=== PATIENT | male | born 1955 | race Caucasian/White ===

== ENCOUNTER 2024-01-16 06:38 | Day surgery (SDC) | payer MEDICARE, BC, SELFPAY ==
[2024-01-16 13:33] VITALS: BMI 32.6
[2024-01-16 13:34] VITALS: BMI 32.6
[2024-01-16 13:37] VITALS: BP 136/75
[2024-01-16 15:43] VITALS: BP 134/80
[2024-01-16 15:50] VITALS: BP 137/83
[2024-01-16 16:00] VITALS: BP 131/82
== END 2024-01-16 16:15 | disposition home or self-care (01) ==
LOC: SDS 06:38
PROVIDERS: ATTENDING PHYSICIAN Surgery
DX: Z12.11 Encounter for screening for malignant neoplasm of colon (principal); Z85.048 Personal history of other malignant neoplasm of rectum, rectosigmoid junction, and anus; Z98.890 Other specified postprocedural states
CPT/HCPCS: 45330; 88305

== ENCOUNTER 2024-07-09 07:25 | Day surgery (SDC) | payer MEDICARE, BC, SELFPAY ==
[2024-07-09 09:26] VITALS: BMI 33.7
[2024-07-09 09:40] VITALS: BP 133/78
[2024-07-09 11:05] VITALS: BP 105/81
[2024-07-09 11:20] VITALS: BP 151/77
[2024-07-09 11:35] VITALS: BP 145/82
== END 2024-07-09 11:40 | disposition home or self-care (01) ==
LOC: SDS 07:25
PROVIDERS: ATTENDING PHYSICIAN Surgery
DX: Z12.11 Encounter for screening for malignant neoplasm of colon (principal); K62.1 Rectal polyp; Z85.048 Personal history of other malignant neoplasm of rectum, rectosigmoid junction, and anus; Z98.890 Other specified postprocedural states
CPT/HCPCS: 45331; 88305

== ENCOUNTER → 2024-07-09 13:29 | Outpatient (REF) | payer MEDICARE, BC, SELFPAY | LOC: MRI 3T 13:29 | PROVIDERS: ATTENDING PHYSICIAN Surgery | DX: C20 Malignant neoplasm of rectum (principal) | CPT/HCPCS: 88305; 72197; A9575 ==

== ENCOUNTER 2025-01-28 06:23 | Day surgery (SDC) | payer MEDICARE, BC, SELFPAY | END 2025-01-28 15:20 | disposition home or self-care (01) | LOC: GI 06:23 | PROVIDERS: ATTENDING PHYSICIAN Surgery | DX: Z12.11 Encounter for screening for malignant neoplasm of colon (principal); K57.30 Diverticulosis of large intestine without perforation or abscess without bleeding; Z85.048 Personal history of other malignant neoplasm of rectum, rectosigmoid junction, and anus | CPT/HCPCS: G0105 ==

== ENCOUNTER 2025-09-16 06:14 | Day surgery (SDC) | payer MEDICARE, BC, SELFPAY | END 2025-09-16 08:38 | disposition home or self-care (01) | LOC: GI 06:14 | PROVIDERS: ATTENDING PHYSICIAN Surgery | DX: Z12.11 Encounter for screening for malignant neoplasm of colon (principal); Z85.048 Personal history of other malignant neoplasm of rectum, rectosigmoid junction, and anus; K63.89 Other specified diseases of intestine; K57.30 Diverticulosis of large intestine without perforation or abscess without bleeding; K62.89 Other specified diseases of anus and rectum | CPT/HCPCS: 45331; 88305 ==

== ENCOUNTER 2025-09-22 06:16 | Day surgery (SDC) | payer MEDICARE, BC, SELFPAY ==
[2025-09-22] VITALS (12 sets, daily range): BP systolic 107–146; BP diastolic 62–80; BMI 29.2
[2025-09-22] MEDS: TYLENOL 1000 MG PO (10:46)
[2025-09-22] MEDS: NORMOSOL-R/PLASMALYTE-A 1000 IV (10:47)
[2025-09-22] MEDS: HEPARIN 5000 UNITS SC (10:47)
--- NOTE | 2025-09-22 13:36 | OR.RPT ---
Operative Report
Operative Report
Primary Surgeon: Trista
Assisting: Jaun REARDON
Pre-op Diagnosis: Incarcerated umbilical hernia
Post-op Diagnosis: Same
Procedure Performed: Robot assisted laparoscopic repair of incarcerated umbilical hernia (rTAPP)
Anesthesia Type: GETA + TAP block
Specimen / Cultures: None
Estimated Blood Loss: 5cc
Complications: None immediate
Operative Findings: 1.5 cm defect with incarcerated fat; 12cm x 12cm bard soft mesh; central mesh rent closed with 2-0 monocryl stratafix suture
DOS: 09/22/25
Indications:� This 69M developed an incarcerated umbilical hernia. Robot assisted laparoscopic repair was planned.
Description of procedure:� The patient was taken to the operating room and positioned into supine position. The patient�s abdomen was prepped and draped in standard sterile fashion. A time-out was completed verifying correct patient, procedure,
site, positioning, and implants and special equipment prior to beginning this procedure.� A stab incision was made in the left upper quadrant, a Veress needle was inserted and proper position was confirmed by aspiration and saline drop test.
Following this, pneumoperitoneum was created with insufflation of carbon dioxide to 12 mmHg. Then a 8mm robotic trocar was inserted at the left anterior axillary line. The laparoscope was inserted and no injuries were identified in the area. Under
direct visualization, two 8mm trocars were placed a hand's breadth inferior to the initial trocar and a hand's breadth inferior to the second trocar in succession.
Attention was turned to the defect. The peritoneum was incised several cm superior to the defect and a peritoneal flap was developed in transverse and caudad directions using blunt and sharp dissection and judicious electrocautery. The defect
measured as above. The defect was closed with 0 PDS stratafix suture. Mesh was passed into the abdomen and centered on the defect and then placed against the underside of the abdominal wall and secured in place with 2-0 vicryl sutures at all four
corners as well as under the defect. The flap was closed over the mesh and secured with 2-0 monocryl stratafix suture. A rent in the flap superior to the defect was repaired with 2-0 vicryl suture. A transversus abdominis plane block was then
performed under laparoscopic vision with marcaine/decadron.
After ensuring adequate hemostasis, the trocars were removed and the pneumoperitoneum allowed to escape. The trocar incisions were closed at the skin level using 4-0 monocryl and topical skin adhesive. All counts were correct. The patient tolerated
the procedure well and was taken to the postanesthesia care unit in stable condition.
The assistance of Jaun REARDON was required due to the complexity of the procedure. During the procedure she assisted with retraction, resection, and closure of the wound.
== END 2025-09-22 15:42 | disposition home or self-care (01) ==
LOC: SDS 06:16
PROVIDERS: ATTENDING PHYSICIAN Surgery
DX: K42.0 Umbilical hernia with obstruction, without gangrene (principal)
CPT/HCPCS: 49592; C1781

== ENCOUNTER → 2025-10-07 11:22 | Outpatient (REF) | payer MEDICARE, BC, SELFPAY | LOC: MRI 3T 11:22 | PROVIDERS: ATTENDING PHYSICIAN Surgery; FAMILY PHYSICIAN Family Medicine | DX: C20 Malignant neoplasm of rectum (principal) | CPT/HCPCS: 72197; A9575 ==